=== PATIENT | male | born 1950 | race Hispanic/Latino ===

== ENCOUNTER 2019-09-17 06:51 | Observation (INO) | payer MEDICARE, OTHER ==
[2019-09-13 14:36] LABS: BASOPHILS % 0.7 % (0.0-1.0); EOSINOPHILS # (AUTO) 0.1 (0.0-0.4); EOSINOPHILS % 1.7 % (0.0-6.0); HEMATOCRIT 47.4 % (38.2-49.6); HEMOGLOBIN 16.2 g/dL (14.0-18.0); LYMPHOCYTES # (AUTO) 1.6 (1.0-3.2); LYMPHOCYTES % 26.8 % (18.0-39.1); MEAN CORPUSCULAR HEMOGLOBIN 29.9 pg (28-32); MEAN CORPUSCULAR HGB CONC 34.2 g/dL (31-35); MEAN CORPUSCULAR VOLUME 87.6 fL (81-99); MONOCYTES # (AUTO) 0.6 (0.2-0.8); MONOCYTES % 9.9 % (4.4-11.3); NEUTROPHILS # (AUTO) 3.5 (2.1-6.9); NEUTROPHILS % 60.7 % (38.7-80.0); PLATELET COUNT 212 x10e3/uL (140-360); RED BLOOD COUNT 5.41 x10e6/uL (4.3-5.7)
--- NOTE | 2019-09-13 14:44 | Diagnostic Imaging Report ---
EXAMINATION: CHEST 2 VIEWS INDICATION: Pre-operative COMPARISON: None FINDINGS: LINES/TUBES:None LUNGS:The lungs are well-inflated. Mild biapical pleural parenchymal thickening/scarring. No focal consolidation or pulmonary edema. PLEURA:No pleural effusion or pneumothorax. MEDIASTINUM:The cardiomediastinal silhouette appears normal in size and shape. BONES/SOFT TISSUES:No acute osseous injury. ABDOMEN:No free air under the diaphragm. IMPRESSION: No focal pneumonia or pulmonary edema. Signed by: Sandra Barahona MD on 09/13/2019 2:40 PM
[2019-09-13 14:52] LABS: ANION GAP 12.7 mmol/L (8-16); BLOOD UREA NITROGEN 17 mg/dL (7-26); BUN/CREATININE RATIO 20 (6-25); CALCIUM 9.5 mg/dL (8.4-10.2); CARBON DIOXIDE 28 mmol/L (22-29); CHLORIDE 103 mmol/L (98-107); CREATININE, SERUM 0.86 mg/dL (0.72-1.25); EST GLOMERULAR FILTRATION RATE > 60 ML/MIN (60-); GLUCOSE 118 mg/dL (74-118); POTASSIUM 3.7 mmol/L (3.5-5.1); SODIUM 140 mmol/L (136-145)
[~2019-09-17 06:51] MED LIST: HYDROCHLOROTHIA25 MG PO; METFORMIN HCL500 MG PO; METOPROLOL SUCC50 MG PO; NAPROXEN250 MG PO; SIMVASTATIN20 MG PO
[2019-09-17] MEDS ORDERED: BACITRACIN 50,000 UNIT VIAL ONE (07:19)
[2019-09-17] MEDS ORDERED: VANCOMYCIN HCL 1,000 MG ONE (07:20)
[2019-09-17] MEDS ORDERED: SODIUM CHLORIDE 0.9% 500ML 500 ML ONE (07:20)
[2019-09-17] MEDS ORDERED: TRANEXAMIC ACID 1,000 MG/10 ML ML ONE (07:20)
[2019-09-17] MEDS ORDERED: GABAPENTIN 300 MG CAP ONE (07:52)
[2019-09-17] MEDS ORDERED: DEXAMETHASONE SOD PHOS 10 MG/1 ML VIAL ONE (07:52)
[2019-09-17] MEDS ORDERED: CELECOXIB 200 MG CAP ONE (07:52)
[2019-09-17] MEDS ORDERED: CEFAZOLIN SOD 1 GM/NS 50ML 100 ML IV ONE (07:53)
[2019-09-17] MEDS ORDERED: ROPIVACAINE 246.25 MG, EPINEPHRINE HCL 1:1000 1ML 0.5 MG, CLONIDINE HCL 0.08 MG, KETORO... INJ ONE ×5 (08:00)
[2019-09-17] MEDS ORDERED: ACETAMINOPHEN 1000 MG/100 ML 100 ML IV ONE (09:00)
[2019-09-17] MEDS ORDERED: DEXAMETHASONE SOD PHOS INJ 4 MG/ML VIAL ONE ×2 (09:00→20:02)
[2019-09-17] MEDS ORDERED: KETOROLAC TROMETHAMINE 30 MG/ML VIAL IV PRN (10:00)
[2019-09-17] MEDS ORDERED: DIPHENHYDRAMINE HCL INJ 50 MG/ML VIAL IV PRN (10:00)
[2019-09-17] MEDS ORDERED: ACETAMINOPHEN 650 MG SUPP PR PRN (10:00)
[2019-09-17] MEDS ORDERED: HYDROCODONE/APAP 5MG-325MG TAB PO PRN (10:00)
[2019-09-17] MEDS ORDERED: DOCUSATE SODIUM 100 MG CAP PO PRN (10:00)
[2019-09-17] MEDS ORDERED: HYDROCODONE/APAP 7.5MG-325MG 1 EA TAB PO PRN (10:00)
[2019-09-17] MEDS ORDERED: ACETAMINOPHEN 1000 MG/100 ML IV PRN (12:00)
--- NOTE | 2019-09-17 12:00 | Diagnostic Imaging Report ---
EXAMINATION: KNEE RIGHT 1-2 VIEWS INDICATION: Postoperative COMPARISON: None FINDINGS: Portable AP and lateral views of the right knee demonstrate immediate postoperative findings of right total knee replacement. Alignment is anatomic. No unexpected fracture. Small amount of subcutaneous soft tissue emphysema. Surgical skin renetta in place. IMPRESSION: Anatomic alignment status post right total knee replacement. Signed by: Sandra Barahona MD on 09/17/2019 11:56 AM
[2019-09-17] MEDS: SODIUM CHLORIDE 0.9% 1000ML 1,000 ML IV SCH (12:17)
[2019-09-17 12:24] VITALS: BP 124/77
[2019-09-17 12:45] VITALS: BP 118/75
[2019-09-17] MEDS: ONDANSETRON HCL INJ 2MG/ML 2ML 2 MG/ML VIAL IV PRN ×2 (13:35→14:00)
[2019-09-17 16:36] VITALS: BP 118/74
--- NOTE | 2019-09-17 16:48 | NUR ---
Patient arrived from OR at 1200. Patient was on a stretcher still waking up from anesthesia. Once patient was more alert, patient assessment was done. Patient has an IV 20g in the right hand that has IV fluids 100 ml/hr running. Patient is AOx3, patient was able to give this marketing underwriter a medical/surgical history with a bakery sales clerk at bedside. Patient's right knee is wrapped with randi bandage from toes to mid thigh and a ice pack on top of knee. Patient stated he was in little to no pain. Patient was oriented to his room, procedures, visitor policy, and answered any questions he had. Will continue to monitor.
[2019-09-17] MEDS: CELECOXIB 100 MG CAP PO SCH (17:25)
[2019-09-17] MEDS: ASPIRIN 325 MG TAB PO SCH (17:25)
[2019-09-17] MEDS: CEFAZOLIN SOD 1 GM/NS 50ML 50 ML IV SCH (17:25)
--- NOTE | 2019-09-17 17:49 | Operative Report ---
DATE OF PROCEDURE: 09/17/2019 SURGEON: Kory Taveras MD LAUNDRY MANAGER: Christian Green, certified PA. PREOPERATIVE DIAGNOSIS: Osteoarthritis, right knee. POSTOPERATIVE DIAGNOSIS: Osteoarthritis, right knee. PROCEDURE: Right total knee arthroplasty. INDICATIONS: The patient is a 69-year-old gentleman with severe end-stage arthritis of his right knee. He has failed conservative management and would like to proceed with a right total knee replacement. The risks and benefits of the procedure have been discussed. All of his questions have been answered. The implants, hospital stay, and recovery have been explained. He states he understands and wishes to proceed. PROCEDURE IN DETAIL: The patient was brought to the operating room and placed under general anesthetic. He received a regional block, tranexamic acid and prophylactic antibiotics in the holding area. His right lower extremity was prepped and draped in a sterile manner. A preoperative time-out was performed. The extremity was exsanguinated and a proximal tourniquet was inflated to 350 mmHg. An incision was made over the anterior aspect of the knee. A medial parapatellar arthrotomy was performed. Clear synovial fluid was evacuated from the joint. Soft tissue releases were performed to bring the knee up into flexion with the patella everted. Meniscal remnants, large marginal osteophytes, and the cruciate ligaments were removed. A Jackson and NephBarre knee system was used throughout the case. An extramedullary cutting guide was used to resect the proximal tibia. The tibial cut was referenced off the lateral compartment. A +2 mm cut was necessary due to the extensive medial wear. This was also appropriate due to the limited range of motion of the knee prior to the surgery. The tibial base plate was a size #6. The central fin punch was impacted and attention was directed towards the distal femur. An intramedullary cutting guide was used to resect the distal femur in 6 degrees of valgus and rotation, referencing off a combination of landmarks including Whitesides line, the epicondylar axis, and the posterior condyles. The femoral component was a size #7. The anterior and posterior cuts were made. Trial reductions were performed. I felt an 11 mm ultracongruent tibial insert provided appropriate soft tissue balancing in full extension and 90 degrees of flexion. The patella was resurfaced with a 35 mm x 9 mm patellar button. The thickness was checked before and after resurfacing and was right around 25 mm. Patellar tracking was concentric. The trial implants were then all removed. A 100 mL premixed pericapsular LOUIS injection was placed into the surrounding soft tissue. The knee was thoroughly irrigated with a shower tip pulsatile lavage. All of the bone cuts had been irrigated with a spray mixture of diluted vancomycin and polymyxin spray. The components were cemented into place using a single mix of high viscosity Biomet cement, preloaded with antibiotics. Care was taken to remove all extravasated cement. The wound was further irrigated while the cement cured. The arthrotomy was then closed after sprinkling 500 mg of vancomycin powder into the joint. The arthrotomy was closed with interrupted #1 Ethibond stitches. The knee was put through flexion and extension to ensure a secure closure. The skin was closed with subcuticular Vicryl and renetta. A sterile Aquacel bandage was applied. The patient was extubated and transported to the recovery room in stable condition. Blood loss was minimal. All needle and sponge counts were correct. Kory Taveras MD DR/LEDY /[id number]
--- NOTE | 2019-09-17 19:05 | NUR ---
RECEIVED REPORT FROM PREVIOUS NURSE. CALL LIGHT WITHIN REACH. PATIENT IN BED. PATIENT IN NO PAIN. PATIENT ON CPM AT 70. PATIENT TOLERATING IT WELL.
[2019-09-17] MEDS ORDERED: EPINEPHRINE HCL 1:1000 1ML 1 MG/ML AMP ONE (19:51)
[2019-09-17] MEDS ORDERED: BUPIVACAINE HCL 0.5% INJ 30 ML VIAL INJ ONE (19:51)
[2019-09-17] MEDS ORDERED: MIDAZOLAM HCL 2 MG/2 ML VIAL ONE (19:57)
[2019-09-17] MEDS ORDERED: FENTANYL CITRATE/PF 100MCG/2 ML INJ ONE (19:57)
[2019-09-17] MEDS ORDERED: KETAMINE HCL INJ 50 MG/ML 10 ML VIAL ONE (19:57)
[2019-09-17 20:00] VITALS: BP 134/90
[2019-09-17] MEDS ORDERED: ETOMIDATE 2 MG/ML 10 ML INJ IV ONE (20:02)
[2019-09-17] MEDS ORDERED: HYDRALAZINE HCL 20 MG/ML VIAL ONE (20:02)
[2019-09-17] MEDS ORDERED: SEVOFLURANE INHAL SOLN 250 ML PEN BTL ONE (20:02)
[2019-09-17] MEDS ORDERED: LIDOCAINE HCL 2% LOCAL INJ 5 ML SDV VIAL INJ ONE (20:02)
[2019-09-17] MEDS ORDERED: ONDANSETRON HCL INJ 2MG/ML 2ML 2 MG/ML VIAL ONE (20:02)
[2019-09-17 20:55] VITALS: BP 134/90
[2019-09-17] MEDS ORDERED: SIMVASTATIN 20 MG TAB PO SCH (21:00)
[2019-09-17] MEDS ORDERED: ZOLPIDEM TARTRATE 5 MG TAB PO PRN (21:00)
[2019-09-17] MEDS ORDERED: SIMVASTATIN 40 MG TAB PO SCH (21:00)
[2019-09-18] VITALS: BP 124/90
[2019-09-18] MEDS: CEFAZOLIN SOD 1 GM/NS 50ML 50 ML IV SCH ×2 (00:25→09:00)
[2019-09-18] MEDS: SODIUM CHLORIDE 0.9% 1000ML 1,000 ML IV SCH (00:25)
[2019-09-18 04:00] VITALS: BP 128/80
--- NOTE | 2019-09-18 05:17 | Consultation ---
DATE OF CONSULTATION: REASON FOR CONSULTATION: Postop medical management. HISTORY OF PRESENT ILLNESS: The patient is a 69-year-old gentleman, status post right total knee arthroplasty for end-stage osteoarthritis. He is doing very well postoperatively with minimal pain in the right knee. He denies any fever, chills, headaches, shortness of breath, nausea, vomiting or dizziness on review of systems. PAST MEDICAL HISTORY: Diabetes, hypertension, and hyperlipidemia. MEDICATIONS: See MAR. ALLERGIES: ENALAPRIL. SOCIAL: Nonsmoker. . Retired. FAMILY HISTORY: Noncontributory at this time. PHYSICAL EXAMINATION: VITAL SIGNS: Temperature 98.3, pulse 76, blood pressure 124/90, sats 96% on room air. GENERAL: No apparent distress, lying in bed. NECK: Supple. CARDIOVASCULAR: Regular rate and rhythm. LUNGS: Clear to auscultation bilaterally. ABDOMEN: Good bowel sounds. Soft and nontender. EXTREMITIES: No clubbing or cyanosis. Right knee is bandaged with no seepage. NEUROLOGIC: Nonfocal. He moves all extremities x4. ASSESSMENT AND PLAN: 1. Right knee pain. Continue with postoperative care and physical therapy. 2. Anemia. Check a CBC. 3. Diabetes. Continue with current care and monitoring. 4. Hypertension. Continue with his current medications and we will monitor the blood pressure. Please see hospital chart for full details. MD MI Lubin/LEDY /[id number]
[2019-09-18 05:24] LABS: HEMATOCRIT 38.1 % (38.2-49.6); HEMOGLOBIN 12.9 g/dL (14.0-18.0)
--- NOTE | 2019-09-18 07:07 | NUR ---
GAVE BEDSIDE SHIFT REPORT TO ONCOMING NURSE. CALL LIGHT WITHIN REACH. PATIENT IN BED. HOURLY ROUNDING PERFORMED
[2019-09-18 07:56] VITALS: BP 134/79
[2019-09-18] MEDS ORDERED: METFORMIN HCL 500 MG TAB PO SCH (08:00)
--- NOTE | 2019-09-18 08:00 | NUR ---
INITIAL ASSESSMENT COMPLETE, PT ON CPM AT THIS TIME, CALL LIGHT IN REACH, VS WNL, NO DISTRESS NOTED, WILL CONTINUE TO MONITOR
--- NOTE | 2019-09-18 08:15 | NUR ---
DR MCADAMS OFFICE PREARRANGED FOLLOWING DISCHARGE PLAN OF: HOME [address], [id number] HOME HEALTH WITH HOME CARE PROVIDERS CONFIRMED WITH [employer] [phone] DME 3 IN ONE COMMODE,CPM AND ROLLING WALKER WITH WHEELS. PROVIDED BY [employer] [phone]
--- NOTE | 2019-09-18 08:30 | NUR ---
PT OFF CPM, TOLERATED AT 70 WITHOUT DISTRESS, WILL CONTINUE TO MONITOR
[2019-09-18 09:00] VITALS: BP 134/79
[2019-09-18] MEDS: CELECOXIB 100 MG CAP PO SCH (09:00)
[2019-09-18] MEDS ORDERED: METOPROLOL SUCCINATE 50 MG TAB XL PO SCH (09:00)
[2019-09-18] MEDS ORDERED: HYDROCHLOROTHIAZIDE 25 MG TAB PO SCH (09:00)
[2019-09-18] MEDS: ASPIRIN 325 MG TAB PO SCH (09:00)
--- NOTE | 2019-09-18 10:16 | NUR ---
PT WORKING WITH PT, DME DELIVERED OF EQUIPMENT IN PREPERATIONS FOR DISCHARGE, CALL LIGHT IN REACH
--- NOTE | 2019-09-18 10:30 | NUR ---
PT WALKS PT 230 FEET, NO DISTRESS NOTED
--- NOTE | 2019-09-18 12:00 | NUR ---
PT WALKED WITH PT AGAIN WITH WALKER, UP AND DOWN THE [address] WAY, PT BACK TO BED, ICE TO RIGHT KNEE, CONTINUE TO MONITOR PT
[2019-09-18 12:54] VITALS: BP 143/84
--- NOTE | 2019-09-18 14:30 | NUR ---
PATIENT DISCHARGED, IV D/CD, EQUIPMENT WITH PATIENT, OUT VIA WHEELCHAIR, TO PRIVATE AUTO TO HOME WITH HOME HEALTH
== END 2019-09-18 14:40 | disposition home or self-care (01) ==
LOC: OR 06:51 → PACU V 09:54 → MED/SURG 10:52
PROVIDERS: ADMIT Specialist; ATTEND Specialist
DX: M17.11 Unilateral primary osteoarthritis, right knee (principal); E11.9 Type 2 diabetes mellitus without complications; I10 Essential (primary) hypertension; E78.00 Pure hypercholesterolemia, unspecified; Z79.84 Long term (current) use of oral hypoglycemic drugs; Z88.8 Allergy status to other drugs, medicaments and biological substances; Z87.442 Personal history of urinary calculi; D64.9 Anemia, unspecified; Z01.810 Encounter for preprocedural cardiovascular examination; Z01.812 Encounter for preprocedural laboratory examination; Z01.818 Encounter for other preprocedural examination; Z11.59 Encounter for screening for other viral diseases
CPT/HCPCS: 27447; 36415 ×3; 71046; 73560; 80048; 82948 ×2; 85014; 85018; 85025; 86850; 86900; 86920; 87635; 93005; 96360; 96361; 97110; 97116 ×2; 97161; C1713 ×4; C1776 ×2; G0378 ×2; J0131; J0171; J0360; J0690 ×2; J1100 ×2; J1885; J2001; J2250; J2405; J2795; J3010; J3370; J7030 ×2; J7040

== ENCOUNTER 2023-07-27 16:16 | Inpatient (IN) | payer MEDICARE, OTHER ==
[~2023-07-27] VITALS: Ht 172.7 cm; Wt 108.9 kg
[2023-07-27] MEDS ORDERED: SODIUM CHLORIDE FLUSH 10 ML SYR IV PRN (17:00)
[2023-07-27] MEDS ORDERED: ADENOSINE 6MG/2ML 5 ML ONE (17:06)
[2023-07-27] MEDS ORDERED: SODIUM CHLORIDE 0.9% 1000ML 1,000 ML ONE (17:06)
[2023-07-27 17:08] LABS: BASOPHILS # (AUTO) 0.1 (0.0-0.1); BASOPHILS % 0.5 % (0.0-1.0); EOSINOPHILS # (AUTO) 0.1 (0.0-0.4); EOSINOPHILS % 0.5 % (0.0-6.0); HEMATOCRIT 47.5 % (38.2-49.6); HEMOGLOBIN 16.6 g/dL (14.0-18.0); LYMPHOCYTES # (AUTO) 1.3 (1.0-3.2); MEAN CORPUSCULAR HEMOGLOBIN 31.2 pg (28-32); MEAN CORPUSCULAR HGB CONC 34.9 g/dL (31-35); MEAN CORPUSCULAR VOLUME 89.3 fL (81-99); MONOCYTES # (AUTO) 0.6 (0.2-0.8); MONOCYTES % 6.8 % (4.4-11.3); NEUTROPHILS # (AUTO) 7.3 (2.1-6.9); PLATELET COUNT 211 x10e3/uL (140-360); RED BLOOD COUNT 5.32 x10e6/uL (4.3-5.7); RED CELL DISTRIBUTION WIDTH 13.3 % (11.7-14.4); WHITE BLOOD COUNT 9.44 x10e3/uL (4.8-10.8)
[2023-07-27] MEDS: SODIUM CHLORIDE 0.9% 1000ML 1,000 ML IV ONE (17:20)
[2023-07-27] MEDS: ADENOSINE 6 MG/2 ML VIAL IV ONE ×2 (17:20→17:50)
[2023-07-27 17:27] LABS: ALBUMIN 4.5 g/dL (3.5-5.0); ALBUMIN/GLOBULIN RATIO 1.3 (0.8-2.0); ANION GAP 17.4 mmol/L (8-16); BILIRUBIN,TOTAL 0.8 mg/dL (0.2-1.2); CALCIUM 9.7 mg/dL (8.4-10.2); CREATININE, SERUM 1.54 mg/dL (0.72-1.25); POTASSIUM 4.4 mmol/L (3.5-5.1); TOTAL PROTEIN 7.9 g/dL (6.5-8.1)
[2023-07-27 17:32] LABS: TROPONIN I 0.032 ng/mL (0-0.300)
[2023-07-27] MEDS ORDERED: ONDANSETRON HCL INJ 2MG/ML 2ML 2 MG/ML VIAL IV PRN (18:00)
[2023-07-27] MEDS ORDERED: SODIUM CHLORIDE FLUSH 10 ML SYR INJ PRN (18:00)
[2023-07-27] MEDS: ASPIRIN 81 MG CHEW TAB PO ONE (18:29)
[2023-07-27 20:11] VITALS: BP 136/90; PULSE 70; RESP 20; TEMP 97.8; O2SAT 96
[2023-07-27 20:15] VITALS: BP 136/90; PULSE 70; RESP 20; TEMP 97.8; O2SAT 96
[2023-07-28] VITALS (9 sets, daily range): BP systolic 113–129; BP diastolic 78–91; PULSE 63–126; RESP 17–20; TEMP 97.2–98.7; O2SAT 97–100
[2023-07-28 05:40] LABS: BASOPHILS % 0.5 % (0.0-1.0); EOSINOPHILS # (AUTO) 0.1 (0.0-0.4); EOSINOPHILS % 1.2 % (0.0-6.0); HEMATOCRIT 44.1 % (38.2-49.6); HEMOGLOBIN 15.5 g/dL (14.0-18.0); LYMPHOCYTES # (AUTO) 2.1 (1.0-3.2); LYMPHOCYTES % 25.4 % (18.0-39.1); MEAN CORPUSCULAR HEMOGLOBIN 31.1 pg (28-32); MEAN CORPUSCULAR HGB CONC 35.1 g/dL (31-35); MEAN CORPUSCULAR VOLUME 88.6 fL (81-99); MONOCYTES # (AUTO) 0.7 (0.2-0.8); MONOCYTES % 8.9 % (4.4-11.3); NEUTROPHILS # (AUTO) 5.1 (2.1-6.9); NEUTROPHILS % 63.8 % (38.7-80.0); PLATELET COUNT 181 x10e3/uL (140-360); RED BLOOD COUNT 4.98 x10e6/uL (4.3-5.7); RED CELL DISTRIBUTION WIDTH 13.3 % (11.7-14.4); WHITE BLOOD COUNT 8.07 x10e3/uL (4.8-10.8)
[2023-07-28 06:10] LABS: ALBUMIN 3.7 g/dL (3.5-5.0); ALBUMIN/GLOBULIN RATIO 1.4 (0.8-2.0); BILIRUBIN,TOTAL 1.2 mg/dL (0.2-1.2); CALCIUM 8.7 mg/dL (8.4-10.2); CREATININE, SERUM 0.86 mg/dL (0.72-1.25); TOTAL PROTEIN 6.4 g/dL (6.5-8.1)
[2023-07-28 06:37] LABS: TROPONIN I 0.104 ng/mL (0-0.300)
[2023-07-28] MEDS: ASPIRIN 81 MG ENTERIC COATED PO SCH (09:23)
[2023-07-28] MEDS: METOPROLOL TARTRATE 50 MG TAB PO SCH (09:24)
[2023-07-28 13:29] LABS: TROPONIN I 0.115 ng/mL (0-0.300)
[2023-07-28] MEDS: ADENOSINE 6 MG/2 ML VIAL IV ONE (14:56)
[2023-07-28] MEDS ORDERED: MELOXICAM7.5 MG PO (16:14)
[2023-07-28] MEDS: SIMVASTATIN 20 MG TAB PO SCH (21:16)
[2023-07-29] VITALS: BP 117/98; PULSE 69; RESP 18; TEMP 98.2; O2SAT 100
[2023-07-29 04:00] VITALS: BP 131/86; PULSE 60; RESP 18; TEMP 98.1; O2SAT 99
[2023-07-29 05:21] LABS: BASOPHILS # (AUTO) 0.1 (0.0-0.1); BASOPHILS % 0.8 % (0.0-1.0); EOSINOPHILS # (AUTO) 0.1 (0.0-0.4); EOSINOPHILS % 2.2 % (0.0-6.0); HEMATOCRIT 42.5 % (38.2-49.6); HEMOGLOBIN 14.9 g/dL (14.0-18.0); LYMPHOCYTES # (AUTO) 1.6 (1.0-3.2); LYMPHOCYTES % 27.2 % (18.0-39.1); MEAN CORPUSCULAR HEMOGLOBIN 30.8 pg (28-32); MEAN CORPUSCULAR HGB CONC 35.1 g/dL (31-35); MONOCYTES # (AUTO) 0.5 (0.2-0.8); MONOCYTES % 8.5 % (4.4-11.3); NEUTROPHILS # (AUTO) 3.7 (2.1-6.9); NEUTROPHILS % 61.1 % (38.7-80.0); PLATELET COUNT 164 x10e3/uL (140-360); RED BLOOD COUNT 4.83 x10e6/uL (4.3-5.7); WHITE BLOOD COUNT 6.03 x10e3/uL (4.8-10.8)
[2023-07-29 05:43] LABS: CALCIUM 8.5 mg/dL (8.4-10.2); CREATININE, SERUM 0.82 mg/dL (0.72-1.25)
[2023-07-29 08:07] VITALS: BP 124/83; PULSE 66; RESP 16; TEMP 97.8; O2SAT 100
[2023-07-29 08:39] VITALS: BP 124/83; PULSE 66; RESP 16; TEMP 97.8; O2SAT 100
[2023-07-29] MEDS ORDERED: METOPROLOL SUCC50 MG PO (08:52)
[2023-07-29] MEDS ORDERED: METOPROLOL SUCCINATE 50 MG TAB XL PO SCH (09:00)
[2023-07-29] MEDS: APIXABAN 5 MG TABLET PO SCH (09:11)
[2023-07-29] MEDS ORDERED: ONDANSETRON HCL 4 MG ORAL DISINTEGRATING TAB PO PRN (09:45)
[2023-07-29] MEDS ORDERED: ENTRESTO 24 MG1 EACH PO (10:06)
[2023-07-29] MEDS ORDERED: ELIQUIS5 MG PO (10:06)
[2023-07-29 10:29] VITALS: BP 124/83; PULSE 66
[2023-07-29] MEDS: METOPROLOL SUCCINATE 50 MG TAB XL PO SCH (10:29)
[2023-07-29] MEDS: SACUBITRIL/VALSARTAN 24MG/26MG 1 EA TAB PO SCH (10:29)
== END 2023-07-29 10:40 | disposition home or self-care (01) | DRG 309 ==
LOC: ER 16:44 → ERHOLD 17:51 → MED/SURG 20:15
PROVIDERS: ADMIT Internal Medicine; ATTEND Internal Medicine
DX: I48.0 Paroxysmal atrial fibrillation (principal); I50.22 Chronic systolic (congestive) heart failure; I11.0 Hypertensive heart disease with heart failure; I47.10 Supraventricular tachycardia, unspecified; Z79.01 Long term (current) use of anticoagulants; R51.9 Headache, unspecified; E11.9 Type 2 diabetes mellitus without complications; Z79.84 Long term (current) use of oral hypoglycemic drugs; E03.9 Hypothyroidism, unspecified; E78.5 Hyperlipidemia, unspecified; E66.01 Morbid (severe) obesity due to excess calories; Z68.36 Body mass index [BMI] 36.0-36.9, adult; M19.91 Primary osteoarthritis, unspecified site; Z86.73 Personal history of transient ischemic attack (TIA), and cerebral infarction without residual deficits; Z79.899 Other long term (current) drug therapy; Z79.1 Long term (current) use of non-steroidal anti-inflammatories (NSAID)
CPT/HCPCS: 36415; 71045; 80048; 80053; 82550; 82948; 83735; 83880; 84443; 84484; 85025; 93005; 93306; 94760; 99284; J0153; J7030; U0002

== ENCOUNTER 2023-12-22 10:29 | Inpatient (IN) | payer MEDICARE ==
[~2023-12-22] VITALS: Ht 172.7 cm; Wt 105.7 kg
[2023-12-22] VITALS (38 sets, daily range): BP systolic 84–120; BP diastolic 66–84; PULSE 57–173; RESP 3–26; TEMP 97.6–98.5; O2SAT 93–99
[~2023-12-22 10:29] MED LIST changes: +ELIQUIS5 MG PO; +ENTRESTO 24 MG1 EACH PO; +MELOXICAM7.5 MG PO
[2023-12-22] MEDS ORDERED: ADENOSINE 6MG/2ML 4 ML ONE (10:55)
[2023-12-22] MEDS ORDERED: SODIUM CHLORIDE 0.9% 1000ML 1,000 ML ONE ×2 (10:55→12:49)
[2023-12-22] MEDS: ADENOSINE 6 MG/2 ML VIAL IV ONE ×2 (11:00→12:49)
[2023-12-22 11:26] LABS: BASOPHILS % 0.5 % (0.0-1.0); EOSINOPHILS # (AUTO) 0.1 (0.0-0.4); EOSINOPHILS % 1.4 % (0.0-6.0); HEMATOCRIT 48.7 % (38.2-49.6); HEMOGLOBIN 16.3 g/dL (14.0-18.0); LYMPHOCYTES # (AUTO) 1.6 (1.0-3.2); MEAN CORPUSCULAR HEMOGLOBIN 31.3 pg (28-32); MEAN CORPUSCULAR HGB CONC 33.5 g/dL (31-35); MEAN CORPUSCULAR VOLUME 93.5 fL (81-99); MONOCYTES # (AUTO) 0.4 (0.2-0.8); MONOCYTES % 6.3 % (4.4-11.3); NEUTROPHILS # (AUTO) 4.3 (2.1-6.9); NEUTROPHILS % 66.6 % (38.7-80.0); PLATELET COUNT 224 x10e3/uL (140-360); RED BLOOD COUNT 5.21 x10e6/uL (4.3-5.7); RED CELL DISTRIBUTION WIDTH 12.5 % (11.7-14.4); WHITE BLOOD COUNT 6.39 x10e3/uL (4.8-10.8)
[2023-12-22] MEDS: METOPROLOL TARTRATE 50 MG TAB PO ONE (11:32)
[2023-12-22 11:56] LABS: ALBUMIN 4.3 g/dL (3.5-5.0); ALBUMIN/GLOBULIN RATIO 1.3 (0.8-2.0); ANION GAP 15.6 mmol/L (8-16); BILIRUBIN,TOTAL 0.8 mg/dL (0.2-1.2); CALCIUM 8.7 mg/dL (8.4-10.2); CREATININE, SERUM 1.1 mg/dL (0.72-1.25); POTASSIUM 3.6 mmol/L (3.5-5.1); TOTAL PROTEIN 7.7 g/dL (6.5-8.1)
[2023-12-22] MEDS: METOPROLOL TARTRATE INJ 1 MG/ML VIAL IV ONE (13:08)
[2023-12-22] MEDS: METOPROLOL TARTRATE INJ 1 MG/ML VIAL IV PRN (13:20)
[2023-12-22] MEDS: ASPIRIN 81 MG CHEW TAB PO ONE (14:44)
[2023-12-22] MEDS ORDERED: AMIODARONE HCL 150 MG/100 ML BAG IV ONE (17:30)
[2023-12-22] MEDS: AMIODARONE HCL 100 ML IV SCH (17:45)
[2023-12-22] MEDS: AMIODARONE 900MG 500 ML IV SCH (17:51)
[2023-12-22] MEDS: ENOXAPARIN SODIUM INJ 100 MG/ML SYR SC SCH (17:57)
[2023-12-22 21:02] LABS: TROPONIN I 0.02 ng/mL (0-0.300)
[2023-12-22] MEDS ORDERED: AMIODARONE 900MG 500 ML IV SCH (23:55)
[2023-12-23] VITALS (43 sets, daily range): BP systolic 83–140; BP diastolic 54–94; PULSE 50–74; RESP 8–31; TEMP 98.1–98.5; O2SAT 90–99
[2023-12-23 06:40] LABS: BASOPHILS % 0.6 % (0.0-1.0); EOSINOPHILS # (AUTO) 0.1 (0.0-0.4); EOSINOPHILS % 1.7 % (0.0-6.0); HEMATOCRIT 42.6 % (38.2-49.6); HEMOGLOBIN 13.4 g/dL (14.0-18.0); LYMPHOCYTES # (AUTO) 1.6 (1.0-3.2); LYMPHOCYTES % 30.8 % (18.0-39.1); MEAN CORPUSCULAR HEMOGLOBIN 30.5 pg (28-32); MEAN CORPUSCULAR HGB CONC 31.5 g/dL (31-35); MEAN CORPUSCULAR VOLUME 96.8 fL (81-99); MONOCYTES # (AUTO) 0.5 (0.2-0.8); NEUTROPHILS % 56.3 % (38.7-80.0); PLATELET COUNT 157 x10e3/uL (140-360); RED CELL DISTRIBUTION WIDTH 12.4 % (11.7-14.4); WHITE BLOOD COUNT 5.29 x10e3/uL (4.8-10.8)
[2023-12-23 07:04] LABS: ANION GAP 10.1 mmol/L (8-16); CALCIUM 8.1 mg/dL (8.4-10.2); CREATININE, SERUM 0.91 mg/dL (0.72-1.25); MAGNESIUM 1.9 MG/DL (1.3-2.1); PHOSPHORUS 2.3 MG/DL (2.3-4.7); POTASSIUM 4.1 mmol/L (3.5-5.1)
[2023-12-23 07:27] LABS: TROPONIN I 0.018 ng/mL (0-0.300)
[2023-12-23] MEDS: APIXABAN 5 MG TABLET PO SCH (18:17)
[2023-12-23] MEDS: AMIODARONE HCL 200 MG TAB PO SCH (18:18)
[2023-12-23] MEDS: SIMVASTATIN 20 MG TAB PO SCH (20:31)
[2023-12-24] VITALS (11 sets, daily range): BP systolic 91–129; BP diastolic 56–97; PULSE 55–66; RESP 9–18; TEMP 97.3–98.7; O2SAT 92–100
== END 2023-12-24 11:05 | disposition home or self-care (01) | DRG 309 ==
LOC: ER 10:38 → ERHOLD 13:36 → ICU 15:03
PROVIDERS: ADMIT Internal Medicine; ATTEND Internal Medicine
DX: I47.10 Supraventricular tachycardia, unspecified (principal); I42.9 Cardiomyopathy, unspecified; I11.0 Hypertensive heart disease with heart failure; I50.22 Chronic systolic (congestive) heart failure; I48.91 Unspecified atrial fibrillation; I48.92 Unspecified atrial flutter; E03.9 Hypothyroidism, unspecified; E11.9 Type 2 diabetes mellitus without complications; I95.89 Other hypotension; E78.5 Hyperlipidemia, unspecified; M19.90 Unspecified osteoarthritis, unspecified site; Z79.01 Long term (current) use of anticoagulants; Z79.84 Long term (current) use of oral hypoglycemic drugs; Z86.73 Personal history of transient ischemic attack (TIA), and cerebral infarction without residual deficits; Z88.8 Allergy status to other drugs, medicaments and biological substances
CPT/HCPCS: 36415; 71045; 80048; 80053; 82550; 82948; 83735; 83880; 84100; 84443; 84484; 85025; 93005; 93306; 94799; 99284; J0153; J1650; J7030